=== PATIENT | female | born 1985 ===

== ENCOUNTER 2019-12-27 15:13 | Outpatient (CLI) | payer OTHER ==
[2019-12-27 15:39] LABS: MEAN CORPUSCULAR HEMOGLOBIN 30.4 pg (27.0-31.0); MEAN CORPUSCULAR HGB CONC 34.7 g/dL (32.0-36.0); MEAN CORPUSCULAR VOLUME 87.8 fL (81.0-99.0); MEAN PLATELET VOLUME 9.6 fL (7.9-10.8); RED BLOOD COUNT 4.27 10^6/uL (4.20-5.40); RED CELL DISTRIBUTION WIDTH 11.4 % (12.0-15.0); WHITE BLOOD COUNT 14.3 x10^3/uL (4.8-10.8)
[2019-12-27 15:53] LABS: ALBUMIN 3.5 g/dL (3.2-5.5); ALBUMIN/GLOBULIN RATIO 0.8 (1.0-2.2); BILIRUBIN,TOTAL 0.7 mg/dL (0.2-1.0); CALCIUM 9.1 mg/dL (8.5-10.3); CREATININE 0.7 mg/dL (0.4-1.0); TOTAL PROTEIN 7.8 g/dL (6.7-8.2)
[2019-12-27 15:55] LABS: CREATININE,URINE 130.7 mg/dL; PROTEIN/CREATININE RATIO,URINE 0.1 (<=0.2)
== END 2019-12-27 15:14 | disposition home or self-care (01) ==
LOC: LAB 15:13
PROVIDERS: ATTEND Obstetrics & Gynecology
DX: O13.9 Gestational [pregnancy-induced] hypertension without significant proteinuria, unspecified trimester (principal); Z3A.00 Weeks of gestation of pregnancy not specified
CPT/HCPCS: 36415; 80053; 82570; 84156; 85027

== ENCOUNTER 2019-12-29 14:50 | Outpatient (CLI) | payer OTHER ==
[2019-12-29 15:17] VITALS: BP 122/81
--- NOTE | 2019-12-31 11:44 | PROCEDURE REPORT ---
- HPI Diagnosis/Indication for NST: Other (Elevated AFP in early and outpouching on sacrum; now resolved MFM recommended twice weekly NST) Current EDU 02/17/20 Gestation 32 Weeks and 6 Days 1 Para 0 Vital Signs Temperature 97.3 F L 12/29/19 15:10 Heart Rate 85 12/29/19 15:10 Respiratory Rate 16 12/29/19 15:10 Blood Pressure 119/86 H 12/29/19 15:10 O2 Saturation 100 12/29/19 15:10 Temperature 97.3 F L 12/29/19 15:10 Heart Rate 85 12/29/19 15:10 Respiratory Rate 16 12/29/19 15:10 Blood Pressure 122/81 H 12/29/19 15:16 O2 Saturation 100 12/29/19 15:10 - NST Procedure NST Procedure Start Date 12/29/19 Start Time 15:07 Stop Time 15:45 Vibroacoustic Stimulation Used No Patient States Movement Yes EFM: 125 mod tho 15x15 accels no decels TOCO: quiet - Results and Plan Findings/Impression: 34 yo at 32+1 with elevated AFP here for NST Cat I tracing Cont with twice weekly NST and weekly AYO
== END 2019-12-29 16:00 | disposition home or self-care (01) ==
LOC: WFO 14:50 → FBP 15:02 → WFO 16:00
PROVIDERS: ATTEND Obstetrics & Gynecology
DX: Z36.1 Encounter for antenatal screening for raised alphafetoprotein level (principal); Z3A.32 32 weeks gestation of pregnancy
CPT/HCPCS: 59025

== ENCOUNTER 2020-01-02 09:20 | Outpatient (CLI) | payer OTHER ==
[2020-01-02 09:44] VITALS: BP 132/87
--- NOTE | 2020-01-10 14:42 | PROCEDURE REPORT ---
- HPI Diagnosis/Indication for NST: Intrauterine growth restriction Current EDU 02/17/20 Gestation 33 Weeks and 3 Days 1 Para 0 Vital Signs Temperature 36.7 C 01/02/20 09:43 Heart Rate 83 01/02/20 09:43 Respiratory Rate 18 01/02/20 09:43 Blood Pressure 132/87 H 01/02/20 09:43 Temperature 36.7 C 01/02/20 09:43 Heart Rate 83 01/02/20 09:43 Respiratory Rate 18 01/02/20 09:43 Blood Pressure 132/87 H 01/02/20 09:43 O2 Saturation - NST Procedure NST Procedure Start Date 01/02/20 Start Time 09:31 Stop Time 09:56 Vibroacoustic Stimulation Used No Patient States Movement Yes - Results and Plan Findings/Impression: Reactive ST Plan: Continue Antinatal testing
== END 2020-01-02 09:55 | disposition home or self-care (01) ==
LOC: WFO 09:20 → FBP 09:25 → WFO 09:55
PROVIDERS: ATTEND Obstetrics & Gynecology
DX: O36.5930 Maternal care for other known or suspected poor fetal growth, third trimester, not applicable or unspecified (principal); Z3A.33 33 weeks gestation of pregnancy
CPT/HCPCS: 59025; 99212

== ENCOUNTER 2020-01-05 15:14 | Outpatient (CLI) | payer OTHER ==
[2020-01-05 15:30] VITALS: BP 133/83
--- NOTE | 2020-01-10 14:38 | PROCEDURE REPORT ---
- HPI Diagnosis/Indication for NST: Gestational Hypertension (Polyhydramnios,IUGR) Current EDU 02/17/20 Gestation 33 Weeks and 6 Days 1 Para 0 Vital Signs Temperature 36.7 C 01/05/20 15:25 Heart Rate 86 01/05/20 15:25 Respiratory Rate 16 01/05/20 15:25 Blood Pressure 133/83 H 01/05/20 15:25 O2 Saturation 99 01/05/20 15:25 Temperature 36.7 C 01/05/20 15:25 Heart Rate 86 01/05/20 15:25 Respiratory Rate 16 01/05/20 15:25 Blood Pressure 133/83 H 01/05/20 15:25 O2 Saturation 99 01/05/20 15:25 - NST Procedure NST Procedure Start Date 01/05/20 Start Time 15:23 Stop Time 16:00 Patient States Movement Yes - Results and Plan Findings/Impression: Reactive NST Plan: continue Antinatal testing
== END 2020-01-05 16:00 | disposition home or self-care (01) ==
LOC: WFO 15:14 → FBP 15:17 → WFO 16:00
PROVIDERS: ATTEND Obstetrics & Gynecology
DX: O13.3 Gestational [pregnancy-induced] hypertension without significant proteinuria, third trimester (principal); O40.3XX0 Polyhydramnios, third trimester, not applicable or unspecified; O36.5930 Maternal care for other known or suspected poor fetal growth, third trimester, not applicable or unspecified; Z3A.33 33 weeks gestation of pregnancy; O28.1 Abnormal biochemical finding on antenatal screening of mother
CPT/HCPCS: 59025

== ENCOUNTER 2020-01-05 16:07 | Outpatient (CLI) | payer OTHER ==
--- NOTE | 2020-01-05 20:07 | Ultrasound Report ---
PROCEDURE: OB Limited INDICATIONS: GESTATIONAL HTN, ELEVATED ALPHA FETOPROTEIN. Reported history of polyhydramnios, weekly amniotic fluid index. OUTSIDE/PRIOR DATING DATA: Last menstrual period (LMP): Not available. LMP-based estimated date of delivery (CLARITZA): None available. First dating scan (date and location): this study, 01/05/2020. Estimated date of delivery (CLARITZA) from first dating scan: 02/17/2020. TECHNIQUE: Real-time scanning was performed of the fetus, with image documentation. Endovaginal scanning: Not needed COMPARISON: None. FINDINGS: A single living intrauterine gestation is present. Presentation: Vertex Placenta: Placental position is posterior, without previa. Amniotic fluid index: 26.5 cm, 97 percentile for gestational age. heart rate: 136 beats per minutes. Maternal cervical canal: Not visualized due to vertex presentation. IMPRESSION: Current amniotic fluid index today is 26.5 cc, at the upper 97.2 percentile for current gestational age. Reviewed by: Damien Joy MD on 01/05/2020 8:05 PM PDT Approved by: Damien Joy MD on 01/05/2020 8:05 PM PDT Station ID: [id number]
== END 2020-01-05 16:08 | disposition home or self-care (01) ==
LOC: DI 16:07
PROVIDERS: ATTEND Obstetrics & Gynecology
DX: O13.9 Gestational [pregnancy-induced] hypertension without significant proteinuria, unspecified trimester (principal); O28.1 Abnormal biochemical finding on antenatal screening of mother; Z3A.00 Weeks of gestation of pregnancy not specified
CPT/HCPCS: 76815

== ENCOUNTER 2020-01-08 10:04 | Inpatient (IN) | payer OTHER ==
[2020-01-08] MEDS ORDERED: AMPICILLIN 2 GM in SODIUM CHLORIDE 0.9% MINIBAG 100 ML IV ONE (10:54)
[2020-01-08] MEDS ORDERED: fentaNYL 100 MCG/2 ML VIAL IVP PRN (10:54)
[2020-01-08] MEDS ORDERED: METOCLOPRAMIDE 10 MG/2 ML VIAL IVP PRN ×2 (10:54→12:17)
[2020-01-08] MEDS ORDERED: CARBOPROST TROMETHAMINE 250 MCG/ML AMP IM PRN ×2 (10:54→11:31)
[2020-01-08] MEDS ORDERED: miSOPROStoL 200 MCG TABLET BC PRN ×2 (10:54→11:31)
[2020-01-08] MEDS ORDERED: METHYLERGONOVINE 0.2 MG/ML VIAL IM PRN ×2 (10:54→11:31)
[2020-01-08] MEDS ORDERED: OXYTOCIN 10 UNIT/ML VIAL IM PRN ×2 (10:54→11:31)
[2020-01-08] MEDS ORDERED: SODIUM CHLORIDE FLUSH 0.9% 10 ML SYRINGE IVP PRN ×2 (10:54→11:31)
[2020-01-08] MEDS ORDERED: OXYTOCIN/SODIUM CHLORIDE 500 ML IV PRN ×2 (10:54→11:31)
[2020-01-08] MEDS ORDERED: LIDOCAINE-MPF 1% 30 ML VIAL ID PRN ×2 (10:54→11:31)
[2020-01-08] MEDS ORDERED: ONDANSETRON 4 MG/2 ML VIAL IVP PRN ×2 (10:54→12:17)
[2020-01-08] MEDS ORDERED: TRANEXAMIC ACID 1,000 MG in SODIUM CHLORIDE 0.9% 100ML 100 ML IV PRN ×2 (10:54→11:31)
[2020-01-08] MEDS ORDERED: BETAMETHASONE 30 MG/5 ML VIAL IM ONE (10:58)
[2020-01-08] MEDS ORDERED: LACTATED RINGERS 1,000 ML IV SCH ×2 (11:00→19:00)
[2020-01-08] MEDS ORDERED: AMPICILLIN 1 GM in SODIUM CHLORIDE 0.9% MINIBAG 100 ML IV SCH (11:00)
[2020-01-08 11:26] LABS: BASOPHILS % (AUTO) 0.3 %; EOSINOPHILS # (AUTO) 0.1 10^3/uL (0.0-0.7); EOSINOPHILS % (AUTO) 0.5 %; HGB - HEMOGLOBIN 13.4 g/dL (12.0-16.0); LYMPHOCYTES # (AUTO) 2.2 10^3/uL (1.5-3.5); LYMPHOCYTES % (AUTO) 16.4 %; MEAN CORPUSCULAR HEMOGLOBIN 31.1 pg (27.0-31.0); MEAN CORPUSCULAR HGB CONC 35.8 g/dL (32.0-36.0); MEAN CORPUSCULAR VOLUME 86.8 fL (81.0-99.0); MEAN PLATELET VOLUME 9.8 fL (7.9-10.8); MONOCYTES # (AUTO) 0.5 10^3/uL (0.0-1.0); NEUTROPHILS # (AUTO) 10.3 10^3/uL (1.5-6.6); NEUTROPHILS % (AUTO) 77.9 %; PLT - PLATELET COUNT 325 10^3/uL (130-450); RED BLOOD COUNT 4.31 10^6/uL (4.20-5.40); RED CELL DISTRIBUTION WIDTH 11.6 % (12.0-15.0); WHITE BLOOD COUNT 13.2 x10^3/uL (4.8-10.8)
[2020-01-08 11:32] LABS: ALBUMIN 3.3 g/dL (3.2-5.5); ALBUMIN/GLOBULIN RATIO 0.8 (1.0-2.2); BILIRUBIN,TOTAL 0.7 mg/dL (0.2-1.0); CALCIUM 9.7 mg/dL (8.5-10.3); CREATININE 0.6 mg/dL (0.4-1.0); TOTAL PROTEIN 7.5 g/dL (6.7-8.2)
[2020-01-08] MEDS ORDERED: ROPIVACAINE 0.2% 200 MG/100 ML BAG EP ONE (11:34)
[2020-01-08] MEDS ORDERED: ROPIVACAINE 0.2% PF 20ML VIAL ONE (11:34)
[2020-01-08] MEDS ORDERED: fentaNYL 100 MCG/2 ML VIAL ONE (11:34)
[2020-01-08 11:40] LABS: CREATININE,URINE 23.5 mg/dL; TOTAL PROTEIN,URINE TIMED < 6 mg/dL
--- NOTE | 2020-01-08 11:46 | HISTORY & PHYSICAL EXAMINATION ---
Admit History - : 1 Parity: 0 Care: positive: Other Complications This : positive: Other (Elevated AFP- resolved sacral outpouching- resolved Polyhydramnios- AYO 26.5 IUGR 1%ile, not c onfirmed) - Mother's Labs Mother's Blood Type: positive: O Mother's RH: positive: Positive GBS: positive: Other (unknown, PCR pending) Rubella Status: positive: Immune - Other Maternal History Other Maternal History: Patient is a 34 yo at 34+2 wga here with labor. Had been having some back aches last night and through the day today. Also had a small amount of blood tinged discharge. Co-worker suggested she was in labor and brought her to triage. She was found to be 7 cm with a BBOW. Early had been complicated by elevated AFP, outpouching over the lower spine, placenta previa. Persistent EIF with normal echo. All of these issues have since resolved and patient had been released from [facility] followup. Has developed GHTN with mild range pressure and normal PIH labs in last 2-4 weeks. Had growth us at [facility] within last 2 weeks which showed IUGR at 6-8%ile and polyhydramnios FU us with [facility] had been scheduled on 01/10/20 Dating: LMP 04/25/2019 gives CLARITZA EDC 02/17/2020. O positive/Rubella immune. Glucola 122. Influenza 12/13/2018. Tdap 11/27/2019. FAS showing small outpouching of the lower spine, resolved on followup. HSV: Denies. GBS: At 36 weeks. Breast pump Rx given. MOD: Anticipate Past Medical History: Cholecystitis, 12/02/18. Question of PCOS. TMJ Past Surgical History: Laparoscopic cholecystectomy 2019. [place] teeth extraction (1999; 2009) SOC HX: The patient lives in [place] with her . 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 She is not deployable for 1 year post delivery. Denies JOHNNA. Family History Summary: Mother: Breast cancer, at age 62, diagnosed at 55. Hypertension. Maternal grandmother: Breast cancer diagnosed in her 80s. from [facility]. No paternal history available. No Ashkenazi or [place]er Ukrainian heritage. Denies history of diabetes or cardiovascular disease. Review of Systems - Other Findings Other Findings: No CANSECO/vision change/RUQ pain. Otherwise, as per HPI and remaining systems are negative. Physical - Abdominal Exam Vital Signs: Temp Pulse Resp BP Pulse Ox 98.1 F 87 22 136/98 H 100 01/08/20 10:15 01/08/20 10:19 01/08/20 10:19 01/08/20 10:19 01/08/20 10:19 Contraction Frequency (min/apart): Q4-5 min Contraction Intensity: positive: Moderate - Monitoring Heart Rate Baseline: 135 mod tho 15x15 accels no decels Strip Review: positive: Category I - Presentation Presentation: positive: Vertex - Vaginal Exam Membranes: positive: Membranes intact Dilation (in cm): 7 (BBOW) Effacement (%): 90 Station: positive: -2 - Other Notes Labor Progress Note/Additional Text: Initial SVE was reported to be 7 cm with BBOW Agree with advanced cervical dilation, likely between 8-8 cm with BBOW. head in palpable. Bedside US confirmed vertex position. GBS PCR and GCCT pending Plan for Labor - Plan For Labor Plan for Labor: 34 yo at 34+2 wga here with labor and advanced cervical dilation. PTL: Cervical dilation progressed beyond point of safe transfer -Pediatric team aware and post-delivery transfer arranged for -BMZ 12 mg IM x1 given -Not meeting age criteria for Magnesium -Expectant management FWB: Unclear status regarding growth. 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 -Vertex position confirmed -GBS unknown, ampicillin given for PPX -Cat I tracing -CEFM GHTN: mild range blood pressures. No PIH symptoms. -PIH labs wnl -Cont to monitor -IV meds for severe range pressures -Magnesium infusion for severe features -Avoid methergine in setting of PPH POLYHYDRAMNIOS: Anticipate uterine atony -Have PPH meds in room PAIN: Desires epidural In-patient care
[2020-01-08] MEDS ORDERED: NALBUPHINE 10 MG/ML AMP IVP PRN (12:17)
[2020-01-08] MEDS ORDERED: ROPIVACAINE 0.2% 200 MG/100 ML BAG EP PRN (12:17)
[2020-01-08] MEDS ORDERED: ePHEDrine 50 MG/ML VIAL IVP PRN (12:17)
[2020-01-08] MEDS ORDERED: NALOXONE 0.4 MG/ML VIAL IVP PRN (12:17)
[2020-01-08] MEDS ORDERED: diphenhydrAMINE INJ 50 MG/ML VIAL IVP PRN (12:17)
--- NOTE | 2020-01-08 12:17 | ANESTHESIA ---
Pre-Anesthesia VS, & Labs - Diagnosis active labor - Procedure labor epidural Vital Signs: Temp Pulse Resp BP Pulse Ox 36.7 C 87 22 136/98 H 100 01/08/20 10:15 01/08/20 10:19 01/08/20 10:19 01/08/20 10:19 01/08/20 10:19 Height: 5 ft 4 in Weight (kg): 84.368 kg Body Mass Index: 31.9 BMI Classification: Obese - NPO >8 hours - Is Patient ?: Yes - Lab Results Current Lab Results: Laboratory Tests 01/08/20 11:10: Sodium 135, Potassium 3.9, Chloride 104, Carbon Dioxide 21, Anio n Gap 10.0, BUN 11, Creatinine 0.6, Estimated GFR (MDRD) 116, Glucose 85, Calcium 9.7, Total Bilirubin 0.7, AST 21, ALT 17, Alkaline Phosphatase 101, Total Protein 7.5, Albumin 3.3, Globulin 4.2, Albumin/Globulin Ratio 0.8 L 01/08/20 11:10: WBC 13.2 H, RBC 4.31, Hgb 13.4, Hct 37.4, MCV 86.8, MCH 31.1 H, MCHC 35.8, RDW 11.6 L, Plt Count 325, MPV 9.8, Neut # (Auto) 10.3 H, Lymph # (Auto) 2.2, [place] # (Auto) 0.5, Eos # (Auto) 0.1, Baso # (Auto) 0.0, Absolute Nucleated RBC 0.00, Nucleated RBC % 0.0 01/08/20 11:10: Blood Type O POSITIVE, Antibody Screen NEGATIVE Lab results reviewed: Yes Fish Bones: 01/08/20 11:10 01/08/20 11:10 Home Medications and Allergies Active Medications Acetaminophen (Tylenol) 650 mg PO Q6H TESSIE Carboprost Tromethamine (Hemabate) 250 mcg IM Q15M PRN PRN Reason: Step 4: Hemorrhage protocol Stop: 01/13/20 10:54 Carboprost Tromethamine (Hemabate) 250 mcg IM Q15M PRN PRN Reason: Step 4: Hemorrhage protocol Stop: 01/13/20 11:32 Fentanyl (Fentanyl) 50 mcg IVP Q1H PRN PRN Reason: PAIN Lactated Ringer's (Lr) 1,000 mls @ 150 mls/hr IV .Q6H40M [facility] Last Admin: 01/08/20 11:21 Dose: 999 mls/hr Documented by: Oxytocin/Sodium Chloride (Pitocin/Sodium Chloride) 500 mls @ 999 mls/hr IV PRN PRN; Protocol PRN Reason: POST- HEMORR PREVENTION Stop: 01/13/20 10:54 Tranexamic Acid 1,000 mg/ (Sodium Chloride) 110 mls @ 660 mls/hr IV .ONCE PRN PRN Reason: EBL >1200mL and within 3hr Stop: 01/13/20 10:54 Ampicillin Sodium 1 gm/ Sodium (Chloride) 100 mls @ 200 mls/hr IV Q4H [facility] Lactated Ringer's (Lr) 1,000 mls @ 150 mls/hr IV .Q6H40M [facility] Oxytocin/Sodium Chloride (Pitocin/Sodium Chloride) 500 mls @ 999 mls/hr IV PRN PRN; Protocol PRN Reason: POST- HEMORR PREVENTION Stop: 01/13/20 11:32 Tranexamic Acid 1,000 mg/ (Sodium Chloride) 110 mls @ 660 mls/hr IV .ONCE PRN PRN Reason: EBL >1200mL and within 3hr Stop: 01/13/20 11:32 Lidocaine HCl (Xylocaine-Mpf 1% Vial) 30 ml ID .ONCE PRN PRN Reason: PERINEAL REPAIR Stop: 01/13/20 10:54 Lidocaine HCl (Xylocaine-Mpf 1% Vial) 30 ml ID .ONCE PRN PRN Reason: PERINEAL REPAIR Stop: 01/13/20 11:32 Methylergonovine Maleate (Methergine Inj) 0.2 mg IM .ONCE PRN PRN Reason: Step 2: Hemorrhage protocol Stop: 01/13/20 10:54 Methylergonovine Maleate (Methergine Inj) 0.2 mg IM .ONCE PRN PRN Reason: Step 2: Hemorrhage protocol Stop: 01/13/20 11:32 Metoclopramide HCl (Reglan Inj) 10 mg IVP Q6H PRN PRN Reason: Nausea / Vomiting Misoprostol (Cytotec) 800 mcg BC .ONCE PRN PRN Reason: Step 3: Hemorrhage protocol Stop: 01/13/20 10:54 Misoprostol (Cytotec) 800 mcg BC .ONCE PRN PRN Reason: Step 3: Hemorrhage protocol Stop: 01/13/20 11:32 Ondansetron HCl (Zofran Inj) 4 mg IVP Q4H PRN PRN Reason: Nausea / Vomiting Oxytocin (Pitocin) 10 unit IM .ONCE PRN PRN Reason: Step one: If no IV access Stop: 01/13/20 10:54 Oxytocin (Pitocin) 10 unit IM .ONCE PRN PRN Reason: Step one: If no IV access Stop: 01/13/20 11:32 Sodium Chloride (Normal Saline Flush 0.9%) 10 ml IVP PRN PRN PRN Reason: NEEDED PER PROVIDER ORDERS Sodium Chloride (Normal Saline Flush 0.9%) 10 ml IVP 0100,0900,1700 TESSIE Sodium Chloride (Normal Saline Flush 0.9%) 10 ml IVP PRN PRN PRN Reason: NEEDED PER PROVIDER ORDERS Sodium Chloride (Normal Saline Flush 0.9%) 10 ml IVP 0100,0900,1700 TESSIE Anes History & Medical History - Anesthetic History Anesthesia Complications: reports: No previous complications Family history of Anesthesia Complications: Denies Family history of Malignant Hyperthermia: Denies - Medical History Cardiovascular: reports: None Pulmonary: reports: None Gastrointestinal: reports: None Urinary: reports: None Neuro: reports: None Musculoskeletal: reports: None Endocrine/Autoimmune: reports: None Blood Disorders: reports: None Skin: reports: None - Obstetrical History : 1 Parity: 0 Complications: positive: Other (Elevated AFP- resolved sacral outpouching- resolved Polyhydramnios- AYO 26.5 IUGR 1%ile, not confirmed) Exam General: Alert, Oriented x3, Cooperative, No acute distress Plan Anesthesia Type: Epidural Consent for Procedure(s) Verified and Reviewed: Yes Code Status: Attempt Resuscitation ASA classification: 2-Mild systemic disease Is this case an emergency?: No
--- NOTE | 2020-01-08 13:33 | PROVIDER PROGRESS NOTE ---
Subjective - Prog Note Date Prog Note Date: 01/08/20 Prog Note Time: 13:29 - Subjective Subjective: 9/C/BBOW Patient is comfortable with epidural in place. Feeling pressure BBOW now taut. EFM 135 mod tho 15x15 accels no decels TOCO: Q2 min Cat I tracing Stand by for imminent delivery once SROM occurs transport team present Objective - Vital Signs/Intake & Output Vital Signs: Vital Signs x48h Temp Pulse Pulse Resp BP BP Pulse Ox 01/08/20 12:15 98.1 F 71 18 130/94 H 01/08/20 10:19 87 22 136/98 H 100 01/08/20 10:15 98.1 F 73 20 139/96 H 100 Intake & Output: Intake & Output 01/05/20 01/06/20 01/07/20 01/08/20 23:59 23:59 23:59 23:59 Output Total 150 Balance -150 - Lab Results Fish Bones: 01/08/20 11:10 01/08/20 11:10 Other Labs: Lab Results x24hrs 01/08/20 01/08/20 01/08/20 Range/Units 11:10 11:10 11:10 WBC 13.2 H (4.8-10.8) x10^3/uL RBC 4.31 (4.20-5.40) 10^6/uL Hgb 13.4 (12.0-16.0) g/dL Hct 37.4 (37.0-47.0) % MCV 86.8 (81.0-99.0) fL MCH 31.1 H (27.0-31.0) pg MCHC 35.8 (32.0-36.0) g/dL RDW 11.6 L (12.0-15.0) % Plt Count 325 (130-450) 10^3/uL MPV 9.8 (7.9-10.8) fL Neut # (Auto) 10.3 H (1.5-6.6) 10^3/uL Lymph # (Auto) 2.2 (1.5-3.5) 10^3/uL [place] # (Auto) 0.5 (0.0-1.0) 10^3/uL Eos # (Auto) 0.1 (0.0-0.7) 10^3/uL Baso # (Auto) 0.0 (0.0-0.1) 10^3/uL Absolute Nucleated RBC 0.00 x10^3/uL Nucleated RBC % 0.0 /100WBC Sodium 135 (135-145) mmol/L Potassium 3.9 (3.5-5.0) mmol/L Chloride 104 (101-111) mmol/L Carbon Dioxide 21 (21-32) mmol/L Anion Gap 10.0 (6-13) BUN 11 (6-20) mg/dL Creatinine 0.6 (0.4-1.0) mg/dL Estimated GFR (MDRD) 116 (>89) Glucose 85 (70-100) mg/dL Calcium 9.7 (8.5-10.3) mg/dL Total Bilirubin 0.7 (0.2-1.0) mg/dL AST 21 (10-42) IU/L ALT 17 (10-60) IU/L Alkaline Phosphatase 101 (42-121) IU/L Total Protein 7.5 (6.7-8.2) g/dL Albumin 3.3 (3.2-5.5) g/dL Globulin 4.2 (2.1-4.2) g/dL Albumin/Globulin Ratio 0.8 L (1.0-2.2) Urine Creatinine mg/dL Ur Total Protein Timed mg/dL Protein/Creatinin Ratio Blood Type O POSITIVE Antibody Screen NEGATIVE 01/08/20 Range/Units 10:35 WBC (4.8-10.8) x10^3/uL RBC (4.20-5.40) 10^6/uL Hgb (12.0-16.0) g/dL Hct (37.0-47.0) % MCV (81.0-99.0) fL MCH (27.0-31.0) pg MCHC (32.0-36.0) g/dL RDW (12.0-15.0) % Plt Count (130-450) 10^3/uL MPV (7.9-10.8) fL Neut # (Auto) (1.5-6.6) 10^3/uL Lymph # (Auto) (1.5-3.5) 10^3/uL [place] # (Auto) (0.0-1.0) 10^3/uL Eos # (Auto) (0.0-0.7) 10^3/uL Baso # (Auto) (0.0-0.1) 10^3/uL Absolute Nucleated RBC x10^3/uL Nucleated RBC % /100WBC Sodium (135-145) mmol/L Potassium (3.5-5.0) mmol/L Chloride (101-111) mmol/L Carbon Dioxide (21-32) mmol/L Anion Gap (6-13) BUN (6-20) mg/dL Creatinine (0.4-1.0) mg/dL Estimated GFR (MDRD) (>89) Glucose (70-100) mg/dL Calcium (8.5-10.3) mg/dL Total Bilirubin (0.2-1.0) mg/dL AST (10-42) IU/L ALT (10-60) IU/L Alkaline Phosphatase (42-121) IU/L Total Protein (6.7-8.2) g/dL Albumin (3.2-5.5) g/dL Globulin (2.1-4.2) g/dL Albumin/Globulin Ratio (1.0-2.2) Urine Creatinine 23.5 mg/dL Ur Total Protein Timed < 6 mg/dL Protein/Creatinin Ratio Not Reportable Blood Type Antibody Screen
[2020-01-08] MEDS: ACETAMINOPHEN 325 MG TABLET PO SCH ×2 (14:10→20:12)
[2020-01-08] MEDS: LACTATED RINGERS 1,000 ML IV SCH ×2 (14:10→14:59)
--- NOTE | 2020-01-08 14:50 | PROVIDER PROGRESS NOTE ---
Subjective - Prog Note Date Prog Note Date: 01/08/20 Prog Note Time: 14:47 - Subjective Subjective: Patient is feeling pressure. SVE C/C/BBOW EFM 135 mod tho 15x15 accel Had a decel to the 90s while examiner was in the room Returned to baseline 135 with some loss of variability but one accels TOCO: Q2-3 min BPs wnl Cat II tracing Trying to reach 4H ampicillin exposure Will needle bag for slow rupture at that time unless tracing is not reas suring. Objective - Vital Signs/Intake & Output Vital Signs: Vital Signs x48h Temp Pulse Pulse Resp BP BP Pulse Ox 01/08/20 12:15 98.1 F 71 18 130/94 H 01/08/20 10:19 87 22 136/98 H 100 01/08/20 10:15 98.1 F 73 20 139/96 H 100 Intake & Output: Intake & Output 01/05/20 01/06/20 01/07/20 01/08/20 23:59 23:59 23:59 23:59 Output Total 150 Balance -150 - Lab Results Fish Bones: 01/08/20 11:10 01/08/20 11:10 Other Labs: Lab Results x24hrs 01/08/20 01/08/20 01/08/20 Range/Units 11:10 11:10 11:10 WBC 13.2 H (4.8-10.8) x10^3/uL RBC 4.31 (4.20-5.40) 10^6/uL Hgb 13.4 (12.0-16.0) g/dL Hct 37.4 (37.0-47.0) % MCV 86.8 (81.0-99.0) fL MCH 31.1 H (27.0-31.0) pg MCHC 35.8 (32.0-36.0) g/dL RDW 11.6 L (12.0-15.0) % Plt Count 325 (130-450) 10^3/uL MPV 9.8 (7.9-10.8) fL Neut # (Auto) 10.3 H (1.5-6.6) 10^3/uL Lymph # (Auto) 2.2 (1.5-3.5) 10^3/uL [place] # (Auto) 0.5 (0.0-1.0) 10^3/uL Eos # (Auto) 0.1 (0.0-0.7) 10^3/uL Baso # (Auto) 0.0 (0.0-0.1) 10^3/uL Absolute Nucleated RBC 0.00 x10^3/uL Nucleated RBC % 0.0 /100WBC Sodium 135 (135-145) mmol/L Potassium 3.9 (3.5-5.0) mmol/L Chloride 104 (101-111) mmol/L Carbon Dioxide 21 (21-32) mmol/L Anion Gap 10.0 (6-13) BUN 11 (6-20) mg/dL Creatinine 0.6 (0.4-1.0) mg/dL Estimated GFR (MDRD) 116 (>89) Glucose 85 (70-100) mg/dL Calcium 9.7 (8.5-10.3) mg/dL Total Bilirubin 0.7 (0.2-1.0) mg/dL AST 21 (10-42) IU/L ALT 17 (10-60) IU/L Alkaline Phosphatase 101 (42-121) IU/L Total Protein 7.5 (6.7-8.2) g/dL Albumin 3.3 (3.2-5.5) g/dL Globulin 4.2 (2.1-4.2) g/dL Albumin/Globulin Ratio 0.8 L (1.0-2.2) Urine Creatinine mg/dL Ur Total Protein Timed mg/dL Protein/Creatinin Ratio Blood Type O POSITIVE Antibody Screen NEGATIVE 01/08/20 Range/Units 10:35 WBC (4.8-10.8) x10^3/uL RBC (4.20-5.40) 10^6/uL Hgb (12.0-16.0) g/dL Hct (37.0-47.0) % MCV (81.0-99.0) fL MCH (27.0-31.0) pg MCHC (32.0-36.0) g/dL RDW (12.0-15.0) % Plt Count (130-450) 10^3/uL MPV (7.9-10.8) fL Neut # (Auto) (1.5-6.6) 10^3/uL Lymph # (Auto) (1.5-3.5) 10^3/uL [place] # (Auto) (0.0-1.0) 10^3/uL Eos # (Auto) (0.0-0.7) 10^3/uL Baso # (Auto) (0.0-0.1) 10^3/uL Absolute Nucleated RBC x10^3/uL Nucleated RBC % /100WBC Sodium (135-145) mmol/L Potassium (3.5-5.0) mmol/L Chloride (101-111) mmol/L Carbon Dioxide (21-32) mmol/L Anion Gap (6-13) BUN (6-20) mg/dL Creatinine (0.4-1.0) mg/dL Estimated GFR (MDRD) (>89) Glucose (70-100) mg/dL Calcium (8.5-10.3) mg/dL Total Bilirubin (0.2-1.0) mg/dL AST (10-42) IU/L ALT (10-60) IU/L Alkaline Phosphatase (42-121) IU/L Total Protein (6.7-8.2) g/dL Albumin (3.2-5.5) g/dL Globulin (2.1-4.2) g/dL Albumin/Globulin Ratio (1.0-2.2) Urine Creatinine 23.5 mg/dL Ur Total Protein Timed < 6 mg/dL Protein/Creatinin Ratio Not Reportable Blood Type Antibody Screen
[2020-01-08] MEDS ORDERED: OXYTOCIN/SODIUM CHLORIDE 500 ML IV SCH (16:41)
[2020-01-08] MEDS ORDERED: SODIUM CHLORIDE FLUSH 0.9% 10 ML SYRINGE IVP SCH ×2 (17:00)
[2020-01-08] MEDS ORDERED: MINERAL OIL LIGHT 10 ML MC ONE ×2 (17:20→17:26)
[2020-01-08] MEDS ORDERED: SIMETHICONE CHEW 80 MG TABLET PO PRN (18:53)
[2020-01-08] MEDS ORDERED: ONDANSETRON ODT 4 MG TABLET TL PRN (18:53)
[2020-01-08] MEDS ORDERED: HYDROCORTISONE 1% CREAM 28 GM TUBE PR PRN (18:53)
[2020-01-08] MEDS ORDERED: DOCUSATE SODIUM 100 MG CAPSULE PO PRN (18:53)
--- NOTE | 2020-01-08 19:08 | DELIVERY NOTE ---
Delivery Note - Labor Labor: positive: Spontaneous - Delivery Method Delivery Method: positive: Spontaneous vaginal delivery - Presentation Presentation: positive: Vertex, OA - occiput anterior - Nuchal Cord Nuchal Cord: positive: Present - Anesthetic Anesthetic Type: - Amniotic Fluid Description Amniotic Fluid Description: positive: Clear - Episiotomy Type Episiotomy Type: positive: None - Laceration Laceration: positive: None - Delivery Outcome Delivery Outcome: positive: Livebirth - : positive: Placed in direct skin contact with mother, Stimulated, Warmed, [place] used sex: positive: Male - Placenta Placenta: positive: Intact, Spontaneous - Estimated Blood Loss Estimated Blood Loss (in cc): 100 - Post Delivery Events Post Delivery Events: positive: No post delivery events - Delivery Comments (Free Text/Narrative) Delivery Comments (Free Text/Narrative): STAGE I: Patient is a 34-year-old G1, P0 at 34+2 weeks estimated gestational age presented with painful contractions. Initial SVE was 7/complete/bulging bag of water. She was admitted and given betamethasone 12 mg IM x1. She was GBS unknown. GBS was collected and she was started on ampicillin for prophylaxis. She received an epidural for pain management. After she had more than 4 hours of exposure to ampicillin she underwent artificial rupture of membranes. Fluid was clear. She was noted to be complete at 1527. tracing was category 1 throughout stage I of labor. STAGE II: Patient started pushing at 1527. She pushed for 2 hours and 26 minutes to deliver a viable male from vertex/PAO presentation. She received second stage pitocin with a max dose of 2 mU/min. Shoulders delivered easily with left shoulder anterior. Tight nuchal cord was noted and was delivered through the cord. He was delivered to maternal chest. Cord was clamped x2 and cut after delay of 1 minute. Apgars were 8/8 and weight was 1750g, consistent with SGA. Irrigation Installation Specialist and pediatric transport team were present for delivery. 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 was transferred via airlift to [facility]. STAGE III: The placenta partially delivered with delivery of the infant. It was not fully delivered until the cord was clamped and cut. It was examined and found to be intact. The perineum was examined and was found to be without lacerations. Total EBL was 100 cc. Procedure was well tolerated and without complication.
[2020-01-08] MEDS: IBUPROFEN 600 MG TABLET PO SCH (20:12)
--- NOTE | 2020-01-08 20:38 | PROVIDER PROGRESS NOTE ---
Subjective - Prog Note Date Prog Note Date: 01/08/20 Prog Note Time: 20:37 - Subjective Subjective: Patient has been having periodic drops in heart rate as low as 25. No symptoms other than possibly having a fluttering in her chest. BP as are stable. EKG shows occasional PVC. Reviewed EKG with Dr. Woods, hospitalist Recommend telemetry -Mg/K/Ca Objective - Vital Signs/Intake & Output Intake & Output: Intake & Output 01/05/20 01/06/20 01/07/20 01/08/20 23:59 23:59 23:59 23:59 Intake Total 1400 Output Total 850 Balance 550 - Lab Results Fish Bones: 01/08/20 11:10 01/08/20 11:10 Other Labs: Lab Results x24hrs 01/08/20 01/08/20 01/08/20 Range/Units 11:10 11:10 11:10 WBC 13.2 H (4.8-10.8) x10^3/uL RBC 4.31 (4.20-5.40) 10^6/uL Hgb 13.4 (12.0-16.0) g/dL Hct 37.4 (37.0-47.0) % MCV 86.8 (81.0-99.0) fL MCH 31.1 H (27.0-31.0) pg MCHC 35.8 (32.0-36.0) g/dL RDW 11.6 L (12.0-15.0) % Plt Count 325 (130-450) 10^3/uL MPV 9.8 (7.9-10.8) fL Neut # (Auto) 10.3 H (1.5-6.6) 10^3/uL Lymph # (Auto) 2.2 (1.5-3.5) 10^3/uL [place] # (Auto) 0.5 (0.0-1.0) 10^3/uL Eos # (Auto) 0.1 (0.0-0.7) 10^3/uL Baso # (Auto) 0.0 (0.0-0.1) 10^3/uL Absolute Nucleated RBC 0.00 x10^3/uL Nucleated RBC % 0.0 /100WBC Sodium 135 (135-145) mmol/L Potassium 3.9 (3.5-5.0) mmol/L Chloride 104 (101-111) mmol/L Carbon Dioxide 21 (21-32) mmol/L Anion Gap 10.0 (6-13) BUN 11 (6-20) mg/dL Creatinine 0.6 (0.4-1.0) mg/dL Estimated GFR (MDRD) 116 (>89) Glucose 85 (70-100) mg/dL Calcium 9.7 (8.5-10.3) mg/dL Total Bilirubin 0.7 (0.2-1.0) mg/dL AST 21 (10-42) IU/L ALT 17 (10-60) IU/L Alkaline Phosphatase 101 (42-121) IU/L Total Protein 7.5 (6.7-8.2) g/dL Albumin 3.3 (3.2-5.5) g/dL Globulin 4.2 (2.1-4.2) g/dL Albumin/Globulin Ratio 0.8 L (1.0-2.2) Urine Creatinine mg/dL Ur Total Protein Timed mg/dL Protein/Creatinin Ratio Blood Type O POSITIVE Antibody Screen NEGATIVE 01/08/20 Range/Units 10:35 WBC (4.8-10.8) x10^3/uL RBC (4.20-5.40) 10^6/uL Hgb (12.0-16.0) g/dL Hct (37.0-47.0) % MCV (81.0-99.0) fL MCH (27.0-31.0) pg MCHC (32.0-36.0) g/dL RDW (12.0-15.0) % Plt Count (130-450) 10^3/uL MPV (7.9-10.8) fL Neut # (Auto) (1.5-6.6) 10^3/uL Lymph # (Auto) (1.5-3.5) 10^3/uL [place] # (Auto) (0.0-1.0) 10^3/uL Eos # (Auto) (0.0-0.7) 10^3/uL Baso # (Auto) (0.0-0.1) 10^3/uL Absolute Nucleated RBC x10^3/uL Nucleated RBC % /100WBC Sodium (135-145) mmol/L Potassium (3.5-5.0) mmol/L Chloride (101-111) mmol/L Carbon Dioxide (21-32) mmol/L Anion Gap (6-13) BUN (6-20) mg/dL Creatinine (0.4-1.0) mg/dL Estimated GFR (MDRD) (>89) Glucose (70-100) mg/dL Calcium (8.5-10.3) mg/dL Total Bilirubin (0.2-1.0) mg/dL AST (10-42) IU/L ALT (10-60) IU/L Alkaline Phosphatase (42-121) IU/L Total Protein (6.7-8.2) g/dL Albumin (3.2-5.5) g/dL Globulin (2.1-4.2) g/dL Albumin/Globulin Ratio (1.0-2.2) Urine Creatinine 23.5 mg/dL Ur Total Protein Timed < 6 mg/dL Protein/Creatinin Ratio Not Reportable Blood Type Antibody Screen
[2020-01-08 21:07] LABS: VBG PH 7.46 (7.31-7.41)
[2020-01-08 21:16] LABS: MAGNESIUM 1.7 mg/dL (1.7-2.8)
--- NOTE | 2020-01-08 22:27 | PROVIDER PROGRESS NOTE ---
Subjective - Prog Note Date Prog Note Date: 01/08/20 Prog Note Time: 22:26 - Subjective Subjective: telemetry unremarkable Ical/Mg/K wnl OK to DC telemetry at 4 hours Objective - Vital Signs/Intake & Output Vital Signs: Vital Signs x48h Temp Pulse Resp BP Pulse Ox 01/08/20 22:12 84 18 129/85 H 99 01/08/20 21:19 97.7 F 81 16 126/88 H 100 Intake & Output: Intake & Output 01/05/20 01/06/20 01/07/20 01/08/20 23:59 23:59 23:59 23:59 Intake Total 1400 Output Total 850 Balance 550 - Lab Results Fish Bones: 01/08/20 11:10 01/08/20 21:01 Other Labs: Lab Results x24hrs 01/08/20 01/08/20 01/08/20 Range/Units 21:01 21:01 11:10 WBC (4.8-10.8) x10^3/uL RBC (4.20-5.40) 10^6/uL Hgb (12.0-16.0) g/dL Hct (37.0-47.0) % MCV (81.0-99.0) fL MCH (27.0-31.0) pg MCHC (32.0-36.0) g/dL RDW (12.0-15.0) % Plt Count (130-450) 10^3/uL MPV (7.9-10.8) fL Neut # (Auto) (1.5-6.6) 10^3/uL Lymph # (Auto) (1.5-3.5) 10^3/uL Alfalfa # (Auto) (0.0-1.0) 10^3/uL Eos # (Auto) (0.0-0.7) 10^3/uL Baso # (Auto) (0.0-0.1) 10^3/uL Absolute Nucleated RBC x10^3/uL Nucleated RBC % /100WBC VBG pH 7.460 H (7.31-7.41) Ionized Calcium 1.16 (1.15-1.33) mmol/L Sodium 135 (135-145) mmol/L Potassium 3.6 3.9 (3.5-5.0) mmol/L Chloride 104 (101-111) mmol/L Carbon Dioxide 21 (21-32) mmol/L Anion Gap 10.0 (6-13) BUN 11 (6-20) mg/dL Creatinine 0.6 (0.4-1.0) mg/dL Estimated GFR (MDRD) 116 (>89) Glucose 85 (70-100) mg/dL Calcium 9.7 (8.5-10.3) mg/dL Magnesium 1.7 (1.7-2.8) mg/dL Total Bilirubin 0.7 (0.2-1.0) mg/dL AST 21 (10-42) IU/L ALT 17 (10-60) IU/L Alkaline Phosphatase 101 (42-121) IU/L Total Protein 7.5 (6.7-8.2) g/dL Albumin 3.3 (3.2-5.5) g/dL Globulin 4.2 (2.1-4.2) g/dL Albumin/Globulin Ratio 0.8 L (1.0-2.2) Urine Creatinine mg/dL Ur Total Protein Timed mg/dL Protein/Creatinin Ratio Blood Type Antibody Screen 01/08/20 01/08/20 01/08/20 Range/Units 11:10 11:10 10:35 WBC 13.2 H (4.8-10.8) x10^3/uL RBC 4.31 (4.20-5.40) 10^6/uL Hgb 13.4 (12.0-16.0) g/dL Hct 37.4 (37.0-47.0) % MCV 86.8 (81.0-99.0) fL MCH 31.1 H (27.0-31.0) pg MCHC 35.8 (32.0-36.0) g/dL RDW 11.6 L (12.0-15.0) % Plt Count 325 (130-450) 10^3/uL MPV 9.8 (7.9-10.8) fL Neut # (Auto) 10.3 H (1.5-6.6) 10^3/uL Lymph # (Auto) 2.2 (1.5-3.5) 10^3/uL [place] # (Auto) 0.5 (0.0-1.0) 10^3/uL Eos # (Auto) 0.1 (0.0-0.7) 10^3/uL Baso # (Auto) 0.0 (0.0-0.1) 10^3/uL Absolute Nucleated RBC 0.00 x10^3/uL Nucleated RBC % 0.0 /100WBC VBG pH (7.31-7.41) Ionized Calcium (1.15-1.33) mmol/L Sodium (135-145) mmol/L Potassium (3.5-5.0) mmol/L Chloride (101-111) mmol/L Carbon Dioxide (21-32) mmol/L Anion Gap (6-13) BUN (6-20) mg/dL Creatinine (0.4-1.0) mg/dL Estimated GFR (MDRD) (>89) Glucose (70-100) mg/dL Calcium (8.5-10.3) mg/dL Magnesium (1.7-2.8) mg/dL Total Bilirubin (0.2-1.0) mg/dL AST (10-42) IU/L ALT (10-60) IU/L Alkaline Phosphatase (42-121) IU/L Total Protein (6.7-8.2) g/dL Albumin (3.2-5.5) g/dL Globulin (2.1-4.2) g/dL Albumin/Globulin Ratio (1.0-2.2) Urine Creatinine 23.5 mg/dL Ur Total Protein Timed < 6 mg/dL Protein/Creatinin Ratio Not Reportable Blood Type O POSITIVE Antibody Screen NEGATIVE
[2020-01-08 22:37] LABS: TRICHOMONAS VAGINALIS DNA NEGATIVE (NEGATIVE)
[2020-01-09] MEDS: IBUPROFEN 600 MG TABLET PO SCH ×2 (02:28→08:59)
[2020-01-09] MEDS: ACETAMINOPHEN 500 MG TABLET PO SCH ×2 (02:29→12:10)
[2020-01-09 12:09] VITALS: BP 119/78
--- NOTE | 2020-01-09 13:02 | Discharge Plan ---
Discharge Plan Problem Reviewed?: Yes Disposition: 01 Home, Self Care Condition: Good Activity Restrictions: Additional Comments (Nothing in the vagina for 6 weeks: No intercourse, tampons, douching Call for: -Fever greater than 100.5 - Pain that does not improve with pain medication -Heavy bleeding in which you are soaking a pad an hour for 2 hours in a row) Shower Restrictions: No (No tub baths or hot tubs) Driving Restrictions: No Additional Instructions or Follow Up instructions: Please contact the clinic if you have: Headache that does not improve with pain medication Sparkly lights or black spots in your field of vision Right upper quadrant pain Systolic blood pressures over 160 Diastolic blood pressures over 110 Please inform us if blood pressures are trending upward or palpitations are becoming more frequent or causing symptoms. Ibuprofen 600 mg by mouth every 6 hours as needed for pain Acetaminophen 500-1000 mg by mouth every 8 hours as needed for pain Docusate 100-200 mg by mouth twice a day as needed for constipation No Smoking: If you smoke, Please STOP! Call for help. Follow-up with: Lakshmi Roberts MD [Provider Admit Priv/Credential] -
--- NOTE | 2020-01-09 13:06 | PROVIDER PROGRESS NOTE ---
Subjective - Prog Note Date Prog Note Date: 01/09/20 Prog Note Time: 13:04 - Subjective Subjective: Patient is up and ambulating, tolerating po, and voiding. Pain is well managed with pain medications. Patient has been on telemetry overnight. Has occasional PVCs but had normal heart rate with no episodes of bradycardia. Patient remained asymptomatic throughout the night. Lochia is minimal. Pain is well managed. She declines prescription for pain medications. She is eager to go to [facility] to be with her son. Objective - Vital Signs/Intake & Output Reviewed Vital Signs: Yes Vital Signs: Vital Signs x48h Temp Pulse Resp BP Pulse Ox 01/09/20 12:09 98.2 F 79 18 119/78 100 01/09/20 08:22 97.7 F 76 18 131/81 H 100 01/09/20 05:36 97.5 F L 85 16 129/74 100 Intake & Output: Intake & Output 01/06/20 01/07/20 01/08/20 01/09/20 23:59 23:59 23:59 23:59 Intake Total 2900 Output Total 1750 Balance 1150 - Objective General Appearance: positive: No acute distress Neck: positive: Nml inspection Respiratory: positive: Chest non-tender, No respiratory distress, Breath sounds nml Cardiovascular: positive: Other (Reg rate, occ PVC) Abdomen: positive: Non-tender, Other (FF below umbi) Skin: positive: Color nml Extremities: positive: Non-tender Neurologic/Psychiatric: positive: Oriented x3 - Lab Results Fish Bones: 01/08/20 11:10 01/08/20 21:01 Other Labs: Lab Results x24hrs 01/08/20 01/08/20 01/08/20 Range/Units 21:01 21:01 10:35 VBG pH 7.460 H (7.31-7.41) Ionized Calcium 1.16 (1.15-1.33) mmol/L Potassium 3.6 (3.5-5.0) mmol/L Magnesium 1.7 (1.7-2.8) mg/dL Chlam trachomat DNA PCR NEGATIVE (NEGATIVE) N.gonorrhoeae DNA (PCR) NEGATIVE (NEGATIVE) T. vaginalis (PCR) NEGATIVE (NEGATIVE) Assessment/Plan - Problem List (1) Vaginal delivery Impression: BP wnl over 24 hours HR wnl, occ PVCs with no symptoms Meeting goals for discharge DC to home
--- NOTE | 2020-01-09 13:06 | Discharge Plan ---
Discharge Plan Problem Reviewed?: Yes Disposition: Home, Self Care Condition: Good Activity Restrictions: Additional Comments No Smoking: If you smoke, Please STOP! Call for help. Follow-up with: Carolina Mixon MD [Primary Care Provider] -
--- NOTE | 2020-01-09 15:37 | Labor Flowsheet ---
Labor Flowsheet Datetime Report Generated by CPN: 01/09/2020 15:37 Datetime: 01/08/2020 21:20 Pulse: 83 SpO2 (%): 100 LaborFlag: Labor Datetime: 01/08/2020 21:19 VITAL SIGNS NBP Sys/Jayne/Mean (mmHg): 126 : 88 : 98 Datetime: 01/08/2020 17:54 Stage of : Labor Datetime: 01/08/2020 17:53 UTERINE ACTIVITY Monitor Mode: Palpation Frequency (min): 1.5-3 Quality: Strong Pattern: Normal: <= 5 Contractions in 10 Minutes Resting Tone (Palpate): Relaxed Contraction Comments: Pushing ASSESSMENT A Monitor Mode: Telemetry FHR Baseline Rate : 125 Variability: Moderate 6-25 bpm Accelerations: None Decelerations: Prolonged Category: Category II Oxygen Method: Room Air Datetime: 01/08/2020 17:20 Stage 2 Comments: Mineral oil Datetime: 01/08/2020 17:15 FHR Baseline Changes: Bradycardia Comments: Unable to determine FHR baseline Datetime: 01/08/2020 17:00 Anesthesia Level Check: T10- Umbilicus Datetime: 01/08/2020 16:59 Patient Position/Activity: Right Lateral Datetime: 01/08/2020 16:55 MEDICATIONS Pitocin (milliunits): Increased to @ 2 Medication Comments: Per provider Datetime: 01/08/2020 16:37 Patient Care Comments: Patient feeling sick, oxygen off per provider Datetime: 01/08/2020 16:32 Oxygen Amount (LPM): 10 Datetime: 01/08/2020 15:45 Duration (sec): 60-90 Datetime: 01/08/2020 15:35 STAGE 2 Pushing: Coached on Pushing; No Urge to Push Pushing Position: Pushing with Contractions; Pushing Lithotomy Pushing Progress: Descent with Pushing Datetime: 01/08/2020 15:29 Membrane Status: Ruptured Membranes Rupture Method: Artificial Amniotic Fluid Color: Clear Amniotic Fluid Amount: Large Datetime: 01/08/2020 15:27 VAGINAL EXAM Dilatation (cm): 10.0 Effacement (%): 100 Exam by: Dr. Roberts Datetime: 01/08/2020 14:59 Antibiotics: Ampicillin IV 1 Gm PATIENT CARE IV/Blood Work: IV Infusing per Order; New IV Bag Hung; IV Bag Number @ 2 Datetime: 01/08/2020 14:37 Vaginal Exam Comments: Taut bag felt per provider Datetime: 01/08/2020 14:35 Provider Notified (Name): Dr. McSorley Datetime: 01/08/2020 14:32 COMMUNICATION Communication: Report Given to @ Dr. Jodieorley Communication Comments: Provider notified that patient is describing pressure even between contract ions Datetime: 01/08/2020 13:00 I/O Interventions: Max Cath Inserted Datetime: 01/08/2020 11:57 Epidural Procedure: Completed Epidural Procedure Other: Pump Started Datetime: 01/08/2020 11:45 Anesthesia Comments: Negative test dose Datetime: 01/08/2020 11:31 PROCEDURE TIME OUT Procedure Verify: Correct Patient Identity; Correct Side and Site are Marked; Accurate Procedure Co nsent Form; Agreement on Procedure to be Done; Correct Patient Position ANESTHESIA Anesthesia Plans: Epidural Epidural Positioning: Sitting Datetime: 01/08/2020 11:19 Steroids: Celestone 12mg IM
== END 2020-01-09 13:20 | disposition home or self-care (01) | DRG 805 ==
LOC: WFO 10:04 → FBP 10:06 → WFO 10:53 → FBP 10:54
PROVIDERS: ADMIT Obstetrics & Gynecology; ATTEND Obstetrics & Gynecology
PROC: 10E0XZZ Delivery of Products of Conception, External Approach (ICD-10-PCS; principal; 2020-01-08)
PROC: 10907ZC Drainage of Amniotic Fluid, Therapeutic from Products of Conception, Via Natural or Artificial Opening (ICD-10-PCS; 2020-01-08)
DX: O40.3XX0 Polyhydramnios, third trimester, not applicable or unspecified (principal); O60.14X0 Preterm labor third trimester with preterm delivery third trimester, not applicable or unspecified; Z37.0 Single live birth; O13.4 Gestational [pregnancy-induced] hypertension without significant proteinuria, complicating childbirth; O36.5930 Maternal care for other known or suspected poor fetal growth, third trimester, not applicable or unspecified; O69.1XX0 Labor and delivery complicated by cord around neck, with compression, not applicable or unspecified; Z3A.34 34 weeks gestation of pregnancy; O99.892 Other specified diseases and conditions complicating childbirth; R00.1 Bradycardia, unspecified
CPT/HCPCS: 80053; 82330; 82570; 83735; 84132; 84156; 85025; 86850; 86900; 86901; 87491; 87591; 87661; 87797; 93005; 99214; A9270; J2795; J7120; 87081

== ENCOUNTER 2021-06-20 13:30 | Emergency (ER) | payer OTHER ==
[2021-06-20 14:00] LABS: BASOPHILS % (AUTO) 0.4 %; EOSINOPHILS # (AUTO) 0.1 10^3/uL (0.0-0.7); EOSINOPHILS % (AUTO) 0.7 %; HCT - HEMATOCRIT 39.3 % (37.0-47.0); HGB - HEMOGLOBIN 13.6 g/dL (12.0-16.0); LYMPHOCYTES # (AUTO) 1.7 10^3/uL (1.5-3.5); LYMPHOCYTES % (AUTO) 16.3 %; MEAN CORPUSCULAR HEMOGLOBIN 29.2 pg (27.0-31.0); MEAN CORPUSCULAR HGB CONC 34.6 g/dL (32.0-36.0); MEAN CORPUSCULAR VOLUME 84.5 fL (81.0-99.0); MEAN PLATELET VOLUME 9.4 fL (7.9-10.8); MONOCYTES # (AUTO) 0.5 10^3/uL (0.0-1.0); MONOCYTES % (AUTO) 4.7 %; NEUTROPHILS # (AUTO) 8.1 10^3/uL (1.5-6.6); NEUTROPHILS % (AUTO) 77.5 %; PLT - PLATELET COUNT 302 10^3/uL (130-450); RED BLOOD COUNT 4.65 10^6/uL (4.20-5.40); RED CELL DISTRIBUTION WIDTH 11.5 % (12.0-15.0); WHITE BLOOD COUNT 10.4 x10^3/uL (4.8-10.8)
[2021-06-20 14:12] LABS: ALBUMIN/GLOBULIN RATIO 1.1 (1.0-2.2); BILIRUBIN,TOTAL 0.9 mg/dL (0.2-1.0); CREATININE 0.5 mg/dL (0.4-1.0); POTASSIUM 3.5 mmol/L (3.5-5.0); TOTAL PROTEIN 7.7 g/dL (6.7-8.2)
--- NOTE | 2021-06-20 14:15 | ED Physician Documentation ---
History of Present Illness - Stated complaint Stated Complaint: SPOTTING/CRAMPING - Chief complaint Chief Complaint: Abd Pain - Additonal information Additional information: 35-year-old female presents emergency department for evaluation of light vaginal spotting and cramping that began this AM. G2, P1. LMP 05/19/2021. She has not yet established with an OB but is going to in about 3 weeks time at [place] for a dull go OB with Dr. Rivera. No fevers no dysuria. Last was complicated with vaginal bleeding throughout the including subchorionic hemorrhage and placenta previa Review of Systems Constitutional: reports: Reviewed and negative Nose: reports: Reviewed and negative Throat: reports: Reviewed and negative Cardiac: reports: Reviewed and negative Respiratory: reports: Reviewed and negative GI: reports: Reviewed and negative : reports: Vaginal bleeding Skin: reports: Reviewed and negative Musculoskeletal: reports: Reviewed and negative PD PAST MEDICAL HISTORY - Past Medical History Cardiovascular: None Respiratory: None Neuro: None Endocrine/Autoimmune: None GI: None : None Musculoskeletal: None Derm: None - Present Medications Home Medications: Ambulatory Orders Medication Instructions Recorded Confirmed cephALEXin [Keflex] 500 mg PO BID #14 cap 06/20/21 - Allergies Allergies/Adverse Reactions: Allergies Allergy/AdvReac Type Severity Reaction Status Date / Time codeine Allergy Intermediate Unknown Verified 06/20/21 13:33 shellfish derived Allergy Intermediate Unknown Verified 06/20/21 13:33 - Social History Smoking Status: Never smoker PD ED PE EXPANDED - General General: Alert, No acute distress - Cardiac Cardiac: Regular Rate, Radial strong equal, Pedal strong equal, Cap refill < 2 sec - Respiratory Respiratory: Clear to ausultation seble. No: Distress, Labored - Abdomen Abdomen: Normal Bowel sounds, Tender to palpation (Mild lower midline pelvic tenderness to palpation.) - Extremities Extremities: Normal. No: Deformity, Tenderness - Neuro Neuro: Alert and Oriented X 3, CNII-XII intact - GCS Eye Opening: Spontaneous Motor: Obeys Commands Verbal: Oriented Total: 15 Results - Vitals Vitals: Vital Signs - 24 hr 06/20/21 06/20/21 13:33 13:38 Temperature 36.5 C 36.5 C Heart Rate 100 100 Respiratory 16 16 Rate Blood Pressure 140/90 H 140/90 H O2 Saturation 97 97 Oxygen O2 Source Room air - Labs Labs: Laboratory Tests 06/20/21 06/20/21 06/20/21 13:46 13:55 13:55 WBC 10.4 RBC 4.65 Hgb 13.6 Hct 39.3 MCV 84.5 MCH 29.2 MCHC 34.6 RDW 11.5 L Plt Count 302 MPV 9.4 Neut # (Auto) 8.1 H Lymph # (Auto) 1.7 [place] # (Auto) 0.5 Eos # (Auto) 0.1 Baso # (Auto) 0.0 Absolute Nucleated RBC 0.00 Nucleated RBC % 0.0 Sodium 137 Potassium 3.5 Chloride 101 Carbon Dioxide 26 Anion Gap 10.0 BUN 10 Creatinine 0.5 Estimated GFR (MDRD) 142 Glucose 98 Calcium 9.0 Total Bilirubin 0.9 AST 20 ALT 23 Alkaline Phosphatase 71 Total Protein 7.7 Albumin 4.0 Globulin 3.7 Albumin/Globulin Ratio 1.1 Lipase 34 HCG, Quant Urine Color YELLOW Urine Clarity CLOUDY Urine pH 7.0 Ur Specific [place] 1.010 Urine Protein NEGATIVE Urine Glucose (UA) NEGATIVE Urine Ketones NEGATIVE Urine Occult Blood LARGE H Urine Nitrite NEGATIVE Urine Bilirubin NEGATIVE Urine Urobilinogen 0.2 (NORMAL) Ur Leukocyte Esterase MODERATE H Urine RBC 6-10 H Urine WBC 6-10 H Ur Squamous Epith Cells MOD Squamous H Urine Bacteria Few Ur Microscopic Review INDICATED Urine Culture Comments NOT INDICATED 06/20/21 13:55 WBC RBC Hgb Hct MCV MCH MCHC RDW Plt Count MPV Neut # (Auto) Lymph # (Auto) [place] # (Auto) Eos # (Auto) Baso # (Auto) Absolute Nucleated RBC Nucleated RBC % Sodium Potassium Chloride Carbon Dioxide Anion Gap BUN Creatinine Estimated GFR (MDRD) Glucose Calcium Total Bilirubin AST ALT Alkaline Phosphatase Total Protein Albumin Globulin Albumin/Globulin Ratio Lipase HCG, Quant 29172.00 Urine Color Urine Clarity Urine pH Ur Specific [place] Urine Protein Urine Glucose (UA) Urine Ketones Urine Occult Blood Urine Nitrite Urine Bilirubin Urine Urobilinogen Ur Leukocyte Esterase Urine RBC Urine WBC Ur Squamous Epith Cells Urine Bacteria Ur Microscopic Review Urine Culture Comments - Rads (name of study) OB US Radiology: Other (Per certified surgical technologist 7-week IUP with positive heart rate. She has a bicornate uterus. Intrauterine is on the right side. She does have subchorionic bleeds both right and left) PD MEDICAL DECISION MAKING - ED course Complexity details: reviewed old records, reviewed results, re-evaluated patient, considered differential, d/w patient ED course: 35-year-old female presents emergency department for vaginal spotting and cr amping in the first trimester . LMP 04/21/2021. She is O+. Screening labs show a healthy quant greater than 80,000. There is some bacteria in her urine which will be treated. Pelvic ultrasound revealed a bicornate uterus with a 7-week IUP and heart rate. There are some associated bilateral subchorionic hemorrhages. Findings were discussed with the patient. She is to continue follow-up with her OB provider as already scheduled. Emergent return precautions for worsening symptoms were discussed. Departure - Departure Disposition: Home, Self Care Clinical Impression: Threatened , Antepartum asymptomatic bacteriuria Subchorionic hematoma in first trimester Qualifiers: Fetus number: single or unspecified fetus Qualified Code(s): O41.8X10 - Other specified disorders of amniotic fluid and membranes, first trimester, not applicable or unspecified; O46.8X1 - Other antepartum hemorrhage, first trimester Condition: Stable Record reviewed to determine appropriate education?: Yes Prescriptions: cephALEXin [Keflex] 500 mg PO BID #14 cap Comments: Radha quinn were seen today in the emergency department for vaginal bleeding in the first trimester . Your screening labs were all essentially normal with the exception of a small amount of bacteria in your urine. This is always treated in and I have sent a prescription for cephalexin to the [facility] in [place]. Your hCG or hormone level is very healthy and just over 86,000. The ultrasound shows that you do have a bicornate uterus. The baby measures at just about 7 weeks with heart rate. There is an associated finding of small subchorionic hemorrhages on each side. Unfortunately subchorionic hemorrhages do put you at risk for early miscarriage. Please discuss this with your OB group. I do recommend avoidance of any sexual activity until cleared by OB. However in general routine daily activities are acceptable. Please return to the emergency department for severe vaginal bleeding, this is measured as saturating a pad every hour for 6 or more hours, if you have any fainting, severe chest pain or shortness of air. I wish you well moving forward with this
[2021-06-20 14:39] LABS: BILIRUBIN,URINE NEGATIVE (NEGATIVE); GLUCOSE, URINE (UA) NEGATIVE (NEGATIVE); KETONES,URINE (UA) NEGATIVE (NEGATIVE); LEUKOCYTE ESTERASE, URINE MODERATE (NEGATIVE); NITRITE,URINE NEGATIVE (NEGATIVE); OCCULT BLOOD,URINE LARGE (NEGATIVE); PROTEIN,URINE NEGATIVE (NEGATIVE); UROBILINOGEN,URINE 0.2 (NORMAL) E.U./dL (NORMAL)
[2021-06-20 14:52] LABS: CLARITY,URINE CLOUDY (CLEAR)
[2021-06-20 14:56] LABS: BACTERIA,URINE Few /HPF (None Seen); SQUAMOUS EPITHELIAL CELL,UR MOD Squamous (<= Few)
--- NOTE | 2021-06-20 15:21 | Ultrasound Report ---
PROCEDURE: OB First Trimester w/TV INDICATIONS: cramping/spotting 1st trimester OUTSIDE/PRIOR DATING DATA: Last menstrual period (LMP): 04/21/2021. LMP-based estimated date of delivery (CLARITZA): 01/26/2022. First dating scan (date and location): 06/20/2021. Estimated date of delivery (CLARITZA) from first dating scan: 02/06/2022. The below data below was generated using the ultrasound generated CLARITZA of 02/06/2022 TECHNIQUE: Real-time scanning was performed of the fetus and maternal pelvic organs, with image documentation. Endovaginal scanning was also performed to better visualize the fetus and maternal ovaries. COMPARISON: None. FINDINGS: Embryo: Posey-rump length 2.2 cm. Heart rate: 148 Measurement variability in dating: +/- 4 weeks by LMP, +/- 7 days by mean sac diameter (use before 6 weeks gestation if crown-rump length not able to be measured), +/- 5 days by crown-rump length (6-12 weeks gestation). Maternal organs: Ovaries not well seen. IMPRESSION: Single live intrauterine gestation with estimated age of 7 weeks 0 days. Reviewed by: Kristian Bishop MD on 06/20/2021 3:20 PM PDT Approved by: Kristian Bishop MD on 06/20/2021 3:20 PM PDT Station ID: [id number]
[2021-06-20 16:16] VITALS: BP 128/88
== END 2021-06-20 16:15 | disposition home or self-care (01) ==
LOC: ED 13:30
DX: O41.8X10 Other specified disorders of amniotic fluid and membranes, first trimester, not applicable or unspecified (principal); O46.8X1 Other antepartum hemorrhage, first trimester; O28.8 Other abnormal findings on antenatal screening of mother; Z3A.01 Less than 8 weeks gestation of pregnancy
CPT/HCPCS: 36415; 80053; 81001; 81003; 83690; 84702; 85025; 87086; 99282; 99284